=== PATIENT | female | born 1980 | race Caucasian/White ===

== ENCOUNTER 2017-07-19 15:42 | Emergency (ER) | payer OTHER ==
[~2017-07-19] VITALS: Wt 90.7 kg
[2017-07-19] MEDS ORDERED: IRON325 M1 PO (15:47)
[2017-07-19] MEDS ORDERED: SYNTHROID,LEV175 MCG PO (15:47)
[2017-07-19 16:13] LABS: BASO % 0.2 % (0.0-1.0); EOS % 11.9 % (1.0-4.0); HEMATOCRIT 32.9 % (37.0-47.0); HEMOGLOBIN 10.8 g/dl (12.0-16.0); LYMPH # 2.9 10*3/uL (1.3-4.4); MEAN CORPUSCULAR HGB 28.6 pg (27.0-31.0); MEAN CORPUSCULAR HGB CONC 32.8 g/dl (33.0-37.0); MONO # 0.8 10*3/uL (0.1-1.0); MONO % 9.5 % (3.0-9.0); NEUT # 3.8 10*3/uL (2.3-7.9); NEUT % 44.2 % (47.0-73.0); PLATELET COUNT AUTOMATED 414 10*3/uL (130-400); RED BLOOD COUNT 3.78 10*6/uL (4.10-5.10); RED CELL DISTRI WIDTH 12.7 % (0-14.5); WHITE BLOOD COUNT 8.5 10*3/uL (4.8-10.8)
[2017-07-19 16:25] LABS: BUN 14 mg/dl (7-24); CHLORIDE 107 mmol/L (98-107); CREATININE 0.84 mg/dL (0.55-1.02); POTASSIUM 3.4 mmol/L (3.5-5.1); SODIUM 140 mmol/L (136-145)
[2017-07-19] MEDS ORDERED: EPIPEN 2-P0.3 MG/0.3 IJ ×2 (16:49→16:59)
[2017-07-19] MEDS ORDERED: MEDROL DOSEPAK4 MG PO (18:53)
== END 2017-07-19 18:42 | disposition home or self-care (01) ==
LOC: ED 15:42
PROVIDERS: Emergency Medicine
DX: L29.9 Pruritus, unspecified (principal); T78.1XXA Other adverse food reactions, not elsewhere classified, initial encounter; Z79.899 Other long term (current) drug therapy; Y92.9 Unspecified place or not applicable

== ENCOUNTER 2022-12-14 12:55 | Emergency (ER) | payer OTHER ==
[~2022-12-14] VITALS: Wt 93.0 kg
[~2022-12-14 12:55] MED LIST: EPIPEN 2-P0.3 MG/0.3 IJ; IRON325 M1 PO; MEDROL DOSEPAK4 MG PO; SYNTHROID,LEV175 MCG PO
[2022-12-14 13:30] LABS: BASO % 0.2 % (0.0-1.0); HEMATOCRIT 43.3 % (37.0-47.0); LYMPH # 0.8 10*3/uL (1.3-4.4); LYMPH % 14.2 % (27.0-41.0); MEAN CELL VOLUME 96.7 fl (81.0-99.0); MEAN CORPUSCULAR HGB CONC 34.2 g/dl (33.0-37.0); MEAN PLATELET VOLUME 9.5 fl (9.6-12.3); MONO # 0.4 10*3/uL (0.1-1.0); MONO % 6.8 % (3.0-9.0); NEUT # 4.6 10*3/uL (2.3-7.9); NEUT % 78.5 % (47.0-73.0); PLATELET COUNT AUTOMATED 313 10*3/uL (130-400); RED BLOOD COUNT 4.48 10*6/uL (4.10-5.10); RED CELL DISTRI WIDTH 12.3 % (0-14.5); WHITE BLOOD COUNT 5.9 10*3/uL (4.8-10.8)
[2022-12-14] MEDS ORDERED: UNITHROID PO (13:37)
[2022-12-14] MEDS ORDERED: HYQVIA 2.52.5 GM/25 SQ (13:38)
[2022-12-14] MEDS ORDERED: DUPIXENT S300 MG/2 M SQ (13:38)
[2022-12-14] MEDS ORDERED: EMGALITY120 MG/1 M SQ (13:39)
[2022-12-14] MEDS ORDERED: KEPPRA1000 MG PO (13:39)
[2022-12-14] MEDS ORDERED: VIMPAT200 MG PO (13:40)
[2022-12-14] MEDS ORDERED: ATIVAN0.5 MG PO (13:40)
[2022-12-14 13:53] LABS: ALKALINE PHOSPHATASE 113 U/L (46-116); BUN 12 mg/dl (9-23); CHLORIDE 103 mmol/L (98-107); POTASSIUM 3.9 mmol/L (3.4-5.1); SGPT/ALT 17 U/L (10-49); TOTAL PROTEIN 7.3 gm/dL (6.0-8.0)
== END 2022-12-14 14:26 | disposition home or self-care (01) ==
LOC: ED 12:55
PROVIDERS: Student in an Organized Health Care Education/Training Program
DX: G40.109 Localization-related (focal) (partial) symptomatic epilepsy and epileptic syndromes with simple partial seizures, not intractable, without status epilepticus (principal); D64.9 Anemia, unspecified; Z88.5 Allergy status to narcotic agent; Z91.018 Allergy to other foods